=== PATIENT | female | born 1975 | race Caucasian/White ===

== ENCOUNTER 2018-10-17 22:58 | Emergency (ER) | payer BC, OTHER ==
[~2018-10-17] VITALS: Ht 162.6 cm; Wt 61.2 kg
[2018-10-17 23:02] VITALS: BP 188/109
== END 2018-10-17 23:29 | disposition home or self-care (01) ==
LOC: ER 23:05
DX: S30.860A Insect bite (nonvenomous) of lower back and pelvis, initial encounter (principal); I10 Essential (primary) hypertension; Z88.5 Allergy status to narcotic agent; Z98.890 Other specified postprocedural states; W57.XXXA Bitten or stung by nonvenomous insect and other nonvenomous arthropods, initial encounter; Y93.89 Activity, other specified; Y92.89 Other specified places as the place of occurrence of the external cause; Y99.8 Other external cause status